=== PATIENT | female | born 2000 | race African-American/Black ===

== ENCOUNTER → 2023-03-13 10:18 | Outpatient (CLI) | payer OTHER, SELFPAY ==
--- NOTE | ~2023-03-13 | US_ITS ---
EXAMINATION: US pelvic complete DATE: 03/13/2023 10:56 INDICATION: Recurrent loss TECHNIQUE: Multiple transabdominal and endovaginal sonographic images of the pelvis were obtained. COMPARISON: None. FINDINGS: The uterus measures 8.0 x 3.3 x 4.4 cm. The endometrial complex measures 5 mm. The right ov sammi measures 3.6 x 2.4 x 3.4 cm. The left ovary measures 3.4 x 3.3 x 3.0 cm. There is normal vascular flow in the ovaries. There is no free fluid in the pelvis. IMPRESSION: 1. No sonographic correlate for the patient's symptoms. Reviewed, dictated and finalized at location [facility]
== END ==
PROVIDERS: PCP Advanced Practice Midwife; Visit Provider Advanced Practice Midwife
DX: N96 Recurrent pregnancy loss (principal)
CPT/HCPCS: 76856